=== PATIENT | male | born 1975 | race Caucasian/White ===

== ENCOUNTER 2022-04-14 11:03 | Emergency (ER) | payer OTHER, SELFPAY | END 2022-04-14 13:32 | disposition home or self-care (01) | LOC: ERS 11:03 | DX: S46.221A Laceration of muscle, fascia and tendon of other parts of biceps, right arm, initial encounter (principal); S23.9XXA Sprain of unspecified parts of thorax, initial encounter; W10.9XXA Fall (on) (from) unspecified stairs and steps, initial encounter | CPT/HCPCS: 71046 ==